=== PATIENT | female | born 1965 | race Caucasian/White ===

== ENCOUNTER 2020-01-22 13:49 | Emergency (ER) | payer SELFPAY ==
[~2020-01-22] VITALS: Ht 167.6 cm; Wt 95.5 kg
[2020-01-22 14:06] VITALS: TEMP 97.8
[2020-01-22] MEDS ORDERED: NORCO 325 MG-51 TAB PO (15:15)
[2020-01-22 15:27] VITALS: BP 138/82; PULSE 95
== END 2020-01-22 15:27 | disposition home or self-care (01) ==
LOC: COL.ER 13:49
DX: S42.92XA Fracture of left shoulder girdle, part unspecified, initial encounter for closed fracture (principal); W01.198A Fall on same level from slipping, tripping and stumbling with subsequent striking against other object, initial encounter; Y92.009 Unspecified place in unspecified non-institutional (private) residence as the place of occurrence of the external cause
CPT/HCPCS: J2405; J2704; J3010; J7030; Q4050